=== PATIENT | male | born 1930 | race Caucasian/White ===

== ENCOUNTER 2019-05-26 18:01 | Emergency (ER) | payer OTHER, MEDICARE ==
[2019-05-26] MEDS ORDERED: ACET/COD 300 MG/30 MG STARTER PACK 6 TAB BTL PO STA (19:00)
--- NOTE | 2019-05-26 19:21 | ED ---
Lower Extremity Injury HPI - General Chief Complaint: Extremity Injury, Lower Stated Complaint: FALL, LEFT LEG PAIN Time Seen by Provider: 05/26/19 18:30 Source: patient Mode of arrival: wheelchair Limitations: no limitations - History of Present Illness Initial Comments: 88-year-old male history of chronic left knee pain osteoarthritis with 4 previous surgeries on the left knee including total knee arthroplasty. Patient states that he has chronic left knee pain however this was worsened today after falling on the anterior portion of the knee around 7:30. Patient denies falling on his bottom, hitting his head injury to the neck or back. Patient denies any injury to the ankle or hip. States she has been able to weight-bear however is painful. Patient denies any redness of any flulike symptoms. He denies any significant swelling. Remaining review of systems negative patient denies any pain prior to the trauma. - Related Data Home Medications Medication Instructions Recorded Confirmed Aspirin 81 mg PO DAILY 02/22/14 08/24/14 Metoprolol Tartrate [Lopressor] 50 mg PO QAM 02/22/14 08/24/14 Tamsulosin [Flomax] 0.4 mg PO DAILY 02/22/14 08/24/14 HYDROcodone/APAP 7.5-325MG [[place] 1 each PO Q6HR PRN 08/20/14 08/24/14 7.5] Levothyroxine Sodium [Synthroid] 25 mcg PO DAILY 08/20/14 08/24/14 Allergies Allergy/AdvReac Type Severity Reaction Status Date / Time metronidazole [From Flagyl] AdvReac Diarrhea Verified 05/26/19 18:28 Metronidazole HCl AdvReac Diarrhea Verified 05/26/19 18:28 [From Flagyl] Review of Systems ROS Statement: Those systems with pertinent positive or pertinent negative responses have been documented in the HPI. ROS Other: All systems not noted in ROS Statement are negative. Past Medical History Past Medical History: Hearing Disorder / Deafness, Hypertension, Osteoarthritis (OA), Prostate Disorder, Sleep Apnea/CPAP/BIPAP, Thyroid Disorder Additional Past Medical History / Comment(s): DIVERTICULOSIS. NO C-PAP. dx. w/asbestosis History of Any Multi-Drug Resistant Organisms: None Reported Past Surgical History: Bowel Resection, Joint Replacement, Orthopedic Surgery Additional Past Surgical History / Comment(s): left knee replaced Past Anesthesia/Blood Transfusion Reactions: Previous Problems w/ Anesthesia Additional Past Anesthesia/Blood Transfusion Reaction / Comment(s): CONFUSION Past Psychological History: No Psychological Hx Reported Smoking Status: Former smoker Past Alcohol Use History: None Reported Past Drug Use History: None Reported General Exam - General Exam Comments Initial Comments: General: The patient is awake and alert, in no distress, and does not appear acutely ill. Eye: Pupils are equal, round and gross inspection.extra-ocular movements are intact. No nystagmus. There is normal conjunctiva bilaterally. No signs of icterus. Ears, nose, mouth and throat: There are moist mucous membranes and no oral lesions. Neck: The neck is supple, there is no tenderness or JVD. Cardiovascular: There is a regular rate and rhythm. No murmur, rub or gallop is appreciated. Respiratory: Lungs are clear to auscultation, respirations are non-labored, breath sounds are equal. No wheezes, stridor, rales, or rhonchi. Musculoskeletal: Inspection of the knees bilaterally reveal a linear scar anteriorly in the vertical position over the left. There is no significant swelling redness or warmth of the joint. Patient is able to passively and actively range the joint without pain out of proportion however does complain of discomfort. Patient strength preserved. Extensor mechanism intact. Patient sensation both proximal and distal to injury site with +2 dorsalis pedis pulses equal in comparison bilaterally. Can weight bear. Neurological: A&O x 3. CN II-XII intact grossly, There are no obvious motor or sensory deficits. Coordination appears grossly intact. Speech is normal. Skin: Skin is warm and dry and no rashes or lesions are noted. Psychiatric: Cooperative, appropriate mood & affect, normal judgment. Limitations: no limitations Course Vital Signs 05/26/19 05/26/19 18:25 20:03 Temperature 98.1 F 97.9 F Pulse Rate 85 82 Respiratory 18 17 Rate Blood Pressure 134/70 155/68 O2 Sat by Pulse 96 95 Oximetry Medical Decision Making - Medical Decision Making 88-year-old male with significant osteoarthritis of the left knee previous TKA. Presenting for left knee pain after injury. Imaging studies (-) for acute process. patient able to weight bear. Extensor mechanism intact. No redness, warmth of the joint.Patient appears well. Patient neurovascularly intact. At this time I do not feel laxity of the knee joint. I feel joint is stable patient is still for discharge with outpatient orthopedic surgery follow-up. RICE instruction and return parameters discussed. Patient discharged appearing well. Disposition Clinical Impression: Fall, Left knee pain Disposition: HOME SELF-CARE Condition: Good Instructions (If sedation given, give patient instructions): Knee Sprain (ED) Additional Instructions: Please use medication as discussed. Please follow-up with Dr. Soto your orthopedic surgeon within the next 1-2 weeks. Please return to emergency room if the symptoms increase or worsen or for any other concerns. Is patient prescribed a controlled substance at d/c from ED?: No Referrals: Karin Seay MD [Primary Care Provider] - 1-2 days Steve Soto DO [Doctor of Osteopathic Medicine] - 1-2 days Time of Disposition: 19:55
--- NOTE | 2019-05-26 19:42 | XR ---
PROCEDURE: XR knee complete LT - 4V DATE AND TIME: 05/26/2019 7:14 PM CLINICAL INDICATION: PHH; Pain TECHNIQUE: Department protocol COMPARISON: None FINDINGS: The orthopedic hardware is intact. There are no periprosthesis lucencies. There is no fract ure or malalignment. The soft tissues are unremarkable. IMPRESSION: NO ACUTE PROCESS.
[2019-05-26 20:04] VITALS: BP 155/68; PULSE 82; RESP 17; TEMP 97.9
== END 2019-05-26 20:03 | disposition home or self-care (01) ==
LOC: EC 18:01
DX: M25.562 Pain in left knee (principal); M17.12 Unilateral primary osteoarthritis, left knee; S89.92XA Unspecified injury of left lower leg, initial encounter; G89.29 Other chronic pain; I10 Essential (primary) hypertension; N42.9 Disorder of prostate, unspecified; E07.9 Disorder of thyroid, unspecified; Z79.82 Long term (current) use of aspirin; Z79.890 Hormone replacement therapy; Z79.899 Other long term (current) drug therapy; Z88.1 Allergy status to other antibiotic agents; Z87.891 Personal history of nicotine dependence; Z96.652 Presence of left artificial knee joint; H91.90 Unspecified hearing loss, unspecified ear; W18.39XA Other fall on same level, initial encounter; Y93.89 Activity, other specified; Y92.009 Unspecified place in unspecified non-institutional (private) residence as the place of occurrence of the external cause
CPT/HCPCS: 99283